=== PATIENT | male | born 1980 | race Two or more races ===

== ENCOUNTER 2017-08-24 09:13 | Inpatient (IN) | payer OTHER ==
[2017-08-24 10:00] VITALS: BMI 27.2
--- NOTE | 2017-08-24 10:22 | HP ---
CIWA Score - CIWA Score Nausea/Vomitin Muscle Tremors: 3 Anxiety: 3 Agitation: 3 Paroxysmal Sweats: 1-Minimal Palms Moist Orientation: 0-Oriented Tacttile Disturbances: 2-Mild Itch/Numbness/Burn Auditory Disturbances: 2-Mild Harshness/Frighten Visual Disturbances: 1-Very Mild Sensitivity Headache: 2-Mild CIWA-Ar Total Score: 20 Admission ROS BHS - HPI Chief Complaint: I NEED HELP TO STOP DRINKING ALCOHOL AND DRUGS Allergies/Adverse Reactions: Allergies Allergy/AdvReac Type Severity Reaction Status Date / Time No Known Allergies Allergy Verified 08/24/17 10:23 History of Present Illness: THIS 36 YEARS OLD MALE WITH ALCOHOL,COCAINE,MARIJUANA DEPENDENCE AND HEROIN ABUSED,SEEKING DETOX,WITHDRAWAL SYMPTOM,LAST DETOX 02/06 UNKNOWN FACILITY SCHIZOAFFECTIVE DISORDER NICOTINE DEPENDENCE Exam Limitations: No Limitations - Ebola screening Have you traveled outside of the country in the last 21 days: No (N) Have you had contact with anyone from an Ebola affected area: No Have you been sick,other than usual withdrawal symptoms: No Do you have a fever: No - Review of Systems Constitutional: Loss of Appetite, Malaise, Night Sweats, Changes in sleep, Weakness EENT: reports: Nose Congestion Respiratory: reports: No Symptoms reported Cardiac: reports: No Symptoms Reported GI: reports: Nausea, Vomiting, Abdominal cramping : reports: No Symptoms Reported Musculoskeletal: reports: Back Pain, Muscle Pain Integumentary: reports: Dryness Neuro: reports: Headache, Tremors Endocrine: reports: No Symptoms Reported Hematology: reports: No Symptoms Reported Psychiatric: reports: No Sypmtoms Reported, Judgement Intact, Mood/Affect Appropiate, Depressed Patient History - Patient Medical History Hx Anemia: No Hx Asthma: No Hx Chronic Obstructive Pulmonary Disease (COPD): No Hx Cancer: No Hx Cardiac Disorders: No Hx Congestive Heart Failure: No Hx Hypertension: No Hx Hypercholesterolemia: No Hx Pacemaker: No HX Cerebrovascular Accident: No Hx Seizures: No Hx Dementia: No Hx Diabetes: No Hx Gastrointestinal Disorders: No Hx Liver Disease: No Hx Genitourinary Disorders: No Hx Sexually Transmitted Disorders: No Hx Renal Disease (ESRD): No Hx Thyroid Disease: No Hx Human Immunodeficiency Virus (HIV): No (LAST TESTED IN 2017 NEGATIVE) Hx Hepatitis C: No Hx Depression: Yes Hx Suicide Attempt: No Hx Bipolar Disorder: No Hx Schizophrenia: Yes (SCHIZOAFFECTIVE DISORDER) Other Medical History: NO SUICIDAL,NO HOMICIDAL - Patient Surgical History Past Surgical History: No - PPD History Previous Implant?: Yes Documented Results: Negative w/o proof Implanted On Prior R Admission?: No PPD to be Administered?: Yes - Smoking Cessation Smoking history: Current every day smoker Have you smoked in the past 12 months: Yes Aproximately how many cigarettes per day: 20 Hx Chewing Tobacco Use: No Initiated information on smoking cessation: Yes 'Breaking Loose' booklet given: 08/24/17 - Substance & Tx. History Hx Alcohol Use: Yes Hx Substance Use: Yes Substance Use Type: Alcohol, Cocaine, Marijuana Hx Substance Use Treatment: Yes (02/07 IN [facility]) - Substances Abused Heroin Route: Inhalation Frequency: 1-3 times last 30 days Amount used: 1BUNDLE Age of first use: 34 Date of Last Use: 08/23/17 Cocaine Route: Smoking Frequency: Daily Amount used: $100 Age of first use: 16 Date of Last Use: 08/23/17 ETOH Route: Oral Frequency: Daily Amount used: 1PINT VODKA, 3-16OZ BEER Age of first use: 16 Date of Last Use: 08/22/17 THC Route: Smoking Frequency: 3-6 times per week Amount used: $ 50 Age of first use: 16 Date of Last Use: 08/23/17 Family Disease History - Family Disease History Family History: Denies Admission Physical Exam S - Vital Signs Vital Signs: Vital Signs - 24 hr 08/24/17 09:58 Temperature 98.0 F Pulse Rate 74 Respiratory 18 Rate Blood Pressure 118/81 - Physical General Appearance: Yes: Moderate Distress, Tremorous, Irritable, Sweating, Anxious HEENTM: Yes: Normal ENT Inspection, JUWAN, Pharynx Normal Respiratory: Yes: Lungs Clear, Normal Breath Sounds, No Respiratory Distress Neck: Yes: Within Normal Limits, Supple, Trachea in good position Breast: Yes: Within Normal Limits Cardiology: Yes: Within Normal Limits, Regular Rhythm, Regular Rate, S1, S2 Abdominal: Yes: Within Normal Limits, Normal Bowel Sounds, Non Tender, Flat, Soft Genitourinary: Yes: Within Normal Limits Back: Yes: Muscle Spasm Extremities: Yes: Within Normal Limits, Normal Range of Motion, Tremors Neurological: Yes: director marketing II-XII NML intact, Fully Oriented, Alert, Motor Strength 5/5 Integumentary: Yes: Dry Lymphatic: Yes: Within Normal Limits - Diagnostic (1) Alcohol dependence with uncomplicated withdrawal Current Visit: Yes Status: Acute (2) Cocaine dependence, uncomplicated Current Visit: Yes Status: Acute (3) Cannabis dependence Current Visit: Yes Status: Acute (4) Heroin abuse Current Visit: Yes Status: Acute (5) Schizoaffective disorder Current Visit: Yes Status: Chronic (6) Nicotine dependence Current Visit: Yes Status: Acute Qualifiers: Nicotine product type: cigarettes Substance use status: in withdrawal Qualified Code(s): F17.213 - Nicotine dependence, cigarettes, with withdrawal Cleared for Admission [facility] - Detox or Rehab [facility] Level of Care: Medically Managed Detox Regimen/Protocol: Librium [facility] Breath Alcohol Content Breath Alcohol Content: 0 Urine Drug Screen - Results Drug Screen Negative: No Urine Drug Screen Results: THC-Marijuana, DIEGO-Cocaine, BAR-Barbiturates
[2017-08-24] MEDS ORDERED: MAG HYDROX/AL HYDROX/SIMETH 30 ML UNIT-DOSE CUP PO PRN (10:41)
[2017-08-24] MEDS ORDERED: chlordiazePOXIDE HCL 25 MG CAPSULE PO PRN (10:41)
[2017-08-24] MEDS ORDERED: MAGNESIUM HYDROX 2400MG/30ML ORAL SUSPENSION 30 ML CUP PO PRN (10:41)
[2017-08-24] MEDS ORDERED: LOPERAMIDE HCL 2 MG CAPSULE PO PRN (10:41)
[2017-08-24] MEDS ORDERED: IBUPROFEN 400 MG TABLET (FP) PO PRN (10:41)
[2017-08-24] MEDS ORDERED: ACETAMINOPHEN 325 MG TABLET (FP) PO PRN (10:41)
[2017-08-24] MEDS ORDERED: P-EPHED 60MG/TRIPROLIDI 2.5MG TABLET PO PRN (10:41)
[2017-08-24] MEDS ORDERED: MENTHOL/PHENOL 1 EACH UD MM PRN (10:41)
[2017-08-24] MEDS ORDERED: NICOTINE POLACRILEX 2 MG GUM BUC PRN (10:41)
[2017-08-24] MEDS ORDERED: MAGNESIUM CITRATE 300 ML BOTTLE PO PRN (10:41)
[2017-08-24] MEDS ORDERED: guaiFENesin/D-METHORPHAN HB 10 ML UNIT-DOSE CUPS PO PRN (10:41)
[2017-08-24] MEDS ORDERED: hydrOXYzine PAMOATE 50 MG CAPSULE (FP) PO PRN (10:41)
[2017-08-24] MEDS ORDERED: chlordiazePOXIDE HCL 25 MG CAPSULE PO ONE (11:45)
[2017-08-24] MEDS: NICOTINE 21 MG/24 HOURS TOPICAL PATCH TD SCH (13:52)
[2017-08-24 15:15] LABS: URINE APPEARANCE CLEAR; URINE BILIRUBIN NEGATIVE (NEGATIVE); URINE BLOOD NEGATIVE (NEGATIVE); URINE COLOR YELLOW; URINE GLUCOSE (UA) NEGATIVE (NEGATIVE); URINE KETONE NEGATIVE (NEGATIVE); URINE LEUK ESTERASE NEGATIVE (NEGATIVE); URINE NITRITE NEGATIVE (NEGATIVE); URINE PROTEIN NEGATIVE (NEGATIVE)
[2017-08-24] MEDS: chlordiazePOXIDE HCL 25 MG CAPSULE PO SCH ×2 (17:31→22:45)
[2017-08-24] MEDS: THIAMINE HCL 100 MG TABLET (FP) PO SCH (22:45)
[2017-08-25] MEDS: chlordiazePOXIDE HCL 25 MG CAPSULE PO SCH ×4 (05:57→22:05)
[2017-08-25 10:13] LABS: HEMATOCRIT 41.9 % (35.4-49); HEMOGLOBIN 13.8 GM/dL (11.7-16.9); MCH 27.8 pg (25.7-33.7); MEAN CELL VOLUME 84.2 fl (80-96); MEAN PLT VOLUME 8.4 fl (7.5-11.1); PLATELET COUNT 247 K/MM3 (134-434); RBC 4.97 M/mm3 (4.00-5.60); RDW 13.2 % (11.9-15.9); WHITE BLOOD COUNT 7.1 K/mm3 (4.0-10.0)
[2017-08-25 10:27] LABS: ALBUMIN 3.3 g/dl (3.4-5.0); ANION GAP 6 (8-16); BLOOD UREA NITROGEN 10 mg/dL (7-18); CALCIUM 7.9 mg/dL (8.5-10.1); CHLORIDE 105 mmol/L (98-107); CO2 29 mmol/L (21-32); GLUCOSE,RANDOM 88 mg/dL (74-106); POTASSIUM 3.9 mmol/L (3.5-5.1); SODIUM 140 mmol/L (136-145)
[2017-08-25 10:31] LABS: ALK PHOS 82 U/L (45-117); BILIRUBIN,TOTAL 0.2 mg/dL (0.2-1.0); CREATININE 0.9 mg/dL (0.7-1.3); SGOT/AST 5 U/L (15-37); SGPT/ALT 10 U/L (12-78); TOT PROT 6.1 g/dl (6.4-8.2)
[2017-08-25] MEDS: NICOTINE 21 MG/24 HOURS TOPICAL PATCH TD SCH (10:43)
[2017-08-25] MEDS: PRENATAL VITAMINS W/ FOLIC ACID TABLET (FP) PO SCH (10:43)
--- NOTE | 2017-08-25 10:50 | EKG ---
Test Reason : Blood Pressure : / mmHG Vent. Rate : 063 BPM Atrial Rate : 063 BPM P-R Int : 168 ms QRS Dur : 090 ms QT Int : 388 ms P-R-T Axes : 063 028 039 degrees QTc Int : 397 ms NORMAL SINUS RHYTHM WITH SINUS ARRHYTHMIA NORMAL ECG NO PREVIOUS ECGS AVAILABLE Confirmed by MARY VALLE MD ([id number]) on 08/25/2017 10:50:06 AM Referred By: Confirmed By:MARY VALLE MD
[2017-08-25 11:01] LABS: SICKLE CELL SCREEN NEGATIVE (NEGATIVE)
[2017-08-25] MEDS ORDERED: PNEUMOC 13-VAL CONJ-DIP CRM/PF 0.5 ML DISP.SYRIN IM ONE (12:00)
--- NOTE | 2017-08-25 12:22 | PN ---
[facility] CIWA - CIWA Score Nausea/Vomitin-No Nausea/No Vomiting Muscle Tremors: 4-Moderate,w/Arms Extend Anxiety: 4-Mod. Anxious/Guarded Agitation: 4-Moderately Restless Paroxysmal Sweats: 1-Minimal Palms Moist Orientation: 0-Oriented Tacttile Disturbances: 3-Moderate Itch/Numb/Burn Auditory Disturbances: 0-None Visual Disturbances: 0-None Headache: 0-None Present CIWA-Ar Total Score: 16 BHS Progress Note (SOAP) Subjective: ANXIETY,SWEATS, FATIGUE. Objective: 08/25/17 12:20 Vital Signs Temperature 96.2 F L 08/25/17 09:51 Pulse Rate 66 08/25/17 09:51 Respiratory Rate 18 08/25/17 09:51 Blood Pressure 125/85 08/25/17 09:51 O2 Sat by Pulse Oximetry (%) Laboratory Last Values WBC 7.1 K/mm3 (4.0-10.0) 08/25/17 07:00 RBC 4.97 M/mm3 (4.00-5.60) 08/25/17 07:00 Hgb 13.8 GM/dL (11.7-16.9) 08/25/17 07:00 Hct 41.9 % (35.4-49) 08/25/17 07:00 MCV 84.2 fl (80-96) 08/25/17 07:00 MCH 27.8 pg (25.7-33.7) 08/25/17 07:00 MCHC 33.0 g/dl (32.0-35.9) 08/25/17 07:00 RDW 13.2 % (11.9-15.9) 08/25/17 07:00 Plt Count 247 K/MM3 (134-434) 08/25/17 07:00 MPV 8.4 fl (7.5-11.1) 08/25/17 07:00 Sickle Cell Screen Negative (NEGATIVE) 08/25/17 07:00 Sodium 140 mmol/L (136-145) 08/25/17 07:00 Potassium 3.9 mmol/L (3.5-5.1) 08/25/17 07:00 Chloride 105 mmol/L (98-107) 08/25/17 07:00 Carbon Dioxide 29 mmol/L (21-32) 08/25/17 07:00 Anion Gap 6 (8-16) L 08/25/17 07:00 BUN 10 mg/dL (7-18) 08/25/17 07:00 Creatinine 0.9 mg/dL (0.7-1.3) 08/25/17 07:00 Creat Clearance w eGFR > 60 (>60) 08/25/17 07:00 Random Glucose 88 mg/dL (74-106) 08/25/17 07:00 Calcium 7.9 mg/dL (8.5-10.1) L 08/25/17 07:00 Total Bilirubin 0.2 mg/dL (0.2-1.0) 08/25/17 07:00 AST 5 U/L (15-37) L 08/25/17 07:00 ALT 10 U/L (12-78) L 08/25/17 07:00 Alkaline Phosphatase 82 U/L (45-117) 08/25/17 07:00 Total Protein 6.1 g/dl (6.4-8.2) L 08/25/17 07:00 Albumin 3.3 g/dl (3.4-5.0) L 08/25/17 07:00 Urine Color Yellow 08/24/17 15:01 Urine Appearance Clear 08/24/17 15:01 Urine pH 6.0 (5.0-8.0) 08/24/17 15:01 Ur Specific [place] 1.028 (1.001-1.035) 08/24/17 15:01 Urine Protein Negative (NEGATIVE) 08/24/17 15:01 Urine Glucose (UA) Negative (NEGATIVE) 08/24/17 15:01 Urine Ketones Negative (NEGATIVE) 08/24/17 15:01 Urine Blood Negative (NEGATIVE) 08/24/17 15:01 Urine Nitrite Negative (NEGATIVE) 08/24/17 15:01 Urine Bilirubin Negative (NEGATIVE) 08/24/17 15:01 Urine Urobilinogen 2.0 mg/dL (0.2-1.0) 08/24/17 15:01 Ur Leukocyte Esterase Negative (NEGATIVE) 08/24/17 15:01 RPR Titer Nonreactive (NONREACTIVE) 08/25/17 07:00 Assessment: 08/25/17 12:22 WITHDRAWAL SX Plan: CONTINUE DETOX
--- NOTE | 2017-08-25 13:17 | CONSULT ---
[facility] Psychiatric Consult - Data Date of interview: 08/25/17 Admission source: [facility] Identifying data: First admission to [facility] for this 36 y/o male seeking detox treatment on for alcohol,heroin,cocaine and cannabis dependence.Patient is single,a father of one,homeless,unemployed and supported on SSI benefits. Substance Abuse History: Confirmed by patient in this session.Smoking history: Current every day smoker. Have you smoked in the past 12 months: Yes. Aproximately how many cigarettes per day: 20. Hx Chewing Tobacco Use: No. Initiated information on smoking cessation: Yes. 'Breaking Loose' booklet given : 08/24/17. - Substance & Tx. History. Hx Alcohol Use: Yes. Hx Substance Use : Yes. Substance Use Type: Alcohol, Cocaine, Marijuana. Hx Substance Use Treatment: Yes (02/07 IN [facility]) Medical History: Patient endorses good general health. Psychiatric History: Diagnosed with Schizoaffective Disorder.Prescribed zyprexa 20 mg/hs.Patient admits to a history of four admissions [facility].No psychiatric OPD care.Mr Urban states that he uses emergency room settings for medications refillls.Denies history of suicide attempts. Physical/Sexual Abuse/Trauma History: Patient denies. Additional Comment: Urine Drug Screen Results: THC-Marijuana, DIEGO-Cocaine, BAR- Barbiturates.Noted. Mental Status Exam - Mental Status Exam Alert and Oriented to: Time, Place, Person Cognitive Function: Good Patient Appearance: Unkempt, Disheveled Mood: Nervous, Withdrawn, Anxious Affect: Mood Congruent Patient Behavior: Fatigued, Appropriate, Cooperative Speech Pattern: Clear, Appropriate Voice Loudness: Normal Thought Process: Intact, Goal Oriented Thought Disorder: Not Present Hallucinations: Denies Suicidal Ideation: Denies Homicidal Ideation: Denies Insight/Judgement: Poor Sleep: Well Appetite: Good Muscle strength/Tone: Normal Gait/Station: Normal Psychiatric Findings - Problem List ([place] 1, 2,3) (1) Alcohol dependence with uncomplicated withdrawal Current Visit: Yes Status: Acute (2) Cannabis dependence Current Visit: Yes Status: Acute (3) Cocaine dependence, uncomplicated Current Visit: Yes Status: Acute (4) Nicotine dependence Current Visit: Yes Status: Acute Qualifiers: Nicotine product type: cigarettes Substance use status: in withdrawal Qualified Code(s): F17.213 - Nicotine dependence, cigarettes, with withdrawal (5) Schizoaffective disorder Current Visit: Yes Status: Chronic - Initial Treatment Plan Initial Treatment Plan: Psychoeducation.Sleep hygiene.Detoxification in progress.Zyprexa 10 mg po hs.Side effects/benefits discussed with patient.Informed,in particular,of the risk of metabolic syndrome.Mr Urban agrees to follow this careplan.Observation.
[2017-08-25] MEDS: OLANZapine 10 MG TABLET PO SCH (22:05)
[2017-08-25] MEDS: THIAMINE HCL 100 MG TABLET (FP) PO SCH (22:05)
[2017-08-26] MEDS: chlordiazePOXIDE HCL 25 MG CAPSULE PO SCH ×2 (06:57→10:36)
[2017-08-26] MEDS: PRENATAL VITAMINS W/ FOLIC ACID TABLET (FP) PO SCH (10:36)
[2017-08-26] MEDS: NICOTINE 21 MG/24 HOURS TOPICAL PATCH TD SCH (10:37)
--- NOTE | 2017-08-26 13:07 | PN ---
[facility] CIWA - CIWA Score Nausea/Vomitin-No Nausea/No Vomiting Muscle Tremors: 4-Moderate,w/Arms Extend Anxiety: 4-Mod. Anxious/Guarded Agitation: 4-Moderately Restless Paroxysmal Sweats: 1-Minimal Palms Moist Orientation: 0-Oriented Tacttile Disturbances: 3-Moderate Itch/Numb/Burn Auditory Disturbances: 0-None Visual Disturbances: 0-None Headache: 0-None Present CIWA-Ar Total Score: 16 BHS Progress Note (SOAP) Subjective: ANXIETY,SWEATS,FATIGUE. Objective: 08/26/17 13:06 Vital Signs Temperature 97.8 F 08/26/17 13:05 Pulse Rate 83 08/26/17 13:05 Respiratory Rate 18 08/26/17 13:05 Blood Pressure 107/67 08/26/17 13:05 O2 Sat by Pulse Oximetry (%) Laboratory Last Values WBC 7.1 K/mm3 (4.0-10.0) 08/25/17 07:00 RBC 4.97 M/mm3 (4.00-5.60) 08/25/17 07:00 Hgb 13.8 GM/dL (11.7-16.9) 08/25/17 07:00 Hct 41.9 % (35.4-49) 08/25/17 07:00 MCV 84.2 fl (80-96) 08/25/17 07:00 MCH 27.8 pg (25.7-33.7) 08/25/17 07:00 MCHC 33.0 g/dl (32.0-35.9) 08/25/17 07:00 RDW 13.2 % (11.9-15.9) 08/25/17 07:00 Plt Count 247 K/MM3 (134-434) 08/25/17 07:00 MPV 8.4 fl (7.5-11.1) 08/25/17 07:00 Sickle Cell Screen Negative (NEGATIVE) 08/25/17 07:00 Sodium 140 mmol/L (136-145) 08/25/17 07:00 Potassium 3.9 mmol/L (3.5-5.1) 08/25/17 07:00 Chloride 105 mmol/L (98-107) 08/25/17 07:00 Carbon Dioxide 29 mmol/L (21-32) 08/25/17 07:00 Anion Gap 6 (8-16) L 08/25/17 07:00 BUN 10 mg/dL (7-18) 08/25/17 07:00 Creatinine 0.9 mg/dL (0.7-1.3) 08/25/17 07:00 Creat Clearance w eGFR > 60 (>60) 08/25/17 07:00 Random Glucose 88 mg/dL (74-106) 08/25/17 07:00 Calcium 7.9 mg/dL (8.5-10.1) L 08/25/17 07:00 Total Bilirubin 0.2 mg/dL (0.2-1.0) 08/25/17 07:00 AST 5 U/L (15-37) L 08/25/17 07:00 ALT 10 U/L (12-78) L 08/25/17 07:00 Alkaline Phosphatase 82 U/L (45-117) 08/25/17 07:00 Total Protein 6.1 g/dl (6.4-8.2) L 08/25/17 07:00 Albumin 3.3 g/dl (3.4-5.0) L 08/25/17 07:00 Urine Color Yellow 08/24/17 15:01 Urine Appearance Clear 08/24/17 15:01 Urine pH 6.0 (5.0-8.0) 08/24/17 15:01 Ur Specific [place] 1.028 (1.001-1.035) 08/24/17 15:01 Urine Protein Negative (NEGATIVE) 08/24/17 15:01 Urine Glucose (UA) Negative (NEGATIVE) 08/24/17 15:01 Urine Ketones Negative (NEGATIVE) 08/24/17 15:01 Urine Blood Negative (NEGATIVE) 08/24/17 15:01 Urine Nitrite Negative (NEGATIVE) 08/24/17 15:01 Urine Bilirubin Negative (NEGATIVE) 08/24/17 15:01 Urine Urobilinogen 2.0 mg/dL (0.2-1.0) 08/24/17 15:01 Ur Leukocyte Esterase Negative (NEGATIVE) 08/24/17 15:01 RPR Titer Nonreactive (NONREACTIVE) 08/25/17 07:00 Assessment: 08/26/17 13:06 WITHDRAWAL SX Plan: CONTINUE DETOX
[2017-08-26] MEDS: chlordiazePOXIDE 5 MG CAPSULE PO SCH ×2 (18:02→22:37)
[2017-08-26] MEDS: THIAMINE HCL 100 MG TABLET (FP) PO SCH (22:37)
[2017-08-26] MEDS: OLANZapine 10 MG TABLET PO SCH (22:37)
[2017-08-27] MEDS: chlordiazePOXIDE 5 MG CAPSULE PO SCH ×2 (05:29→10:36)
[2017-08-27] MEDS: NICOTINE 21 MG/24 HOURS TOPICAL PATCH TD SCH (10:36)
[2017-08-27] MEDS: PRENATAL VITAMINS W/ FOLIC ACID TABLET (FP) PO SCH (10:36)
--- NOTE | 2017-08-27 13:34 | PN ---
BHS Progress Note (SOAP) Subjective: ANXIETY, SWEATS,IN BED SLEEPING MOST TIME, FATIGUE. OOB FOR UNIT ROUTINES. Objective: 08/27/17 13:33 Vital Signs 08/27/17 08/27/17 08/27/17 06:20 09:05 13:08 Temperature 97.1 F L 96.7 F L 97.6 F Pulse Rate 68 74 120 H Respiratory 18 18 20 Rate Blood Pressure 110/65 116/79 124/83 Assessment: 08/27/17 13:34 WITHDRAWAL SX Plan: CONTINUE DETOX
[2017-08-27] MEDS: chlordiazePOXIDE HCL 10 MG CAPSULE PO SCH ×2 (18:18→22:40)
[2017-08-27] MEDS: THIAMINE HCL 100 MG TABLET (FP) PO SCH (22:40)
[2017-08-27] MEDS: OLANZapine 10 MG TABLET PO SCH (22:41)
[2017-08-28 06:08] VITALS: BP 110/68; PULSE 79; TEMP 97
[2017-08-28] MEDS: chlordiazePOXIDE HCL 10 MG CAPSULE PO SCH (06:33)
--- NOTE | 2017-08-28 13:17 | PN ---
[facility] Progress Note (SOAP) Subjective: DETOX COMPLETED.ALERT O X 3. NAD. PT REFERRED TO REHAB AND BED AVAILABLE TODAY BUT PT DECLINED TO GO TO REHAB. Objective: 08/28/17 13:16 Vital Signs Temperature 97 F L 08/28/17 06:07 Pulse Rate 79 08/28/17 06:07 Respiratory Rate 20 08/28/17 06:07 Blood Pressure 110/68 08/28/17 06:07 O2 Sat by Pulse Oximetry (%) Laboratory Last Values WBC 7.1 K/mm3 (4.0-10.0) 08/25/17 07:00 RBC 4.97 M/mm3 (4.00-5.60) 08/25/17 07:00 Hgb 13.8 GM/dL (11.7-16.9) 08/25/17 07:00 Hct 41.9 % (35.4-49) 08/25/17 07:00 MCV 84.2 fl (80-96) 08/25/17 07:00 MCH 27.8 pg (25.7-33.7) 08/25/17 07:00 MCHC 33.0 g/dl (32.0-35.9) 08/25/17 07:00 RDW 13.2 % (11.9-15.9) 08/25/17 07:00 Plt Count 247 K/MM3 (134-434) 08/25/17 07:00 MPV 8.4 fl (7.5-11.1) 08/25/17 07:00 Sickle Cell Screen Negative (NEGATIVE) 08/25/17 07:00 Sodium 140 mmol/L (136-145) 08/25/17 07:00 Potassium 3.9 mmol/L (3.5-5.1) 08/25/17 07:00 Chloride 105 mmol/L (98-107) 08/25/17 07:00 Carbon Dioxide 29 mmol/L (21-32) 08/25/17 07:00 Anion Gap 6 (8-16) L 08/25/17 07:00 BUN 10 mg/dL (7-18) 08/25/17 07:00 Creatinine 0.9 mg/dL (0.7-1.3) 08/25/17 07:00 Creat Clearance w eGFR > 60 (>60) 08/25/17 07:00 Random Glucose 88 mg/dL (74-106) 08/25/17 07:00 Calcium 7.9 mg/dL (8.5-10.1) L 08/25/17 07:00 Total Bilirubin 0.2 mg/dL (0.2-1.0) 08/25/17 07:00 AST 5 U/L (15-37) L 08/25/17 07:00 ALT 10 U/L (12-78) L 08/25/17 07:00 Alkaline Phosphatase 82 U/L (45-117) 08/25/17 07:00 Total Protein 6.1 g/dl (6.4-8.2) L 08/25/17 07:00 Albumin 3.3 g/dl (3.4-5.0) L 08/25/17 07:00 Urine Color Yellow 08/24/17 15:01 Urine Appearance Clear 08/24/17 15:01 Urine pH 6.0 (5.0-8.0) 08/24/17 15:01 Ur Specific [place] 1.028 (1.001-1.035) 08/24/17 15:01 Urine Protein Negative (NEGATIVE) 08/24/17 15:01 Urine Glucose (UA) Negative (NEGATIVE) 08/24/17 15:01 Urine Ketones Negative (NEGATIVE) 08/24/17 15:01 Urine Blood Negative (NEGATIVE) 08/24/17 15:01 Urine Nitrite Negative (NEGATIVE) 08/24/17 15:01 Urine Bilirubin Negative (NEGATIVE) 08/24/17 15:01 Urine Urobilinogen 2.0 mg/dL (0.2-1.0) 08/24/17 15:01 Ur Leukocyte Esterase Negative (NEGATIVE) 08/24/17 15:01 RPR Titer Nonreactive (NONREACTIVE) 08/25/17 07:00 Assessment: 08/28/17 13:16 WITHDRAWAL SX Plan: D/C PT TODAY.
--- NOTE | 2017-08-28 13:20 | DS ---
[facility] Detox Discharge Summary Admission Date: 08/24/17 Discharge Date: 08/28/17 - History Present History: Alcohol Dependence, Cannabis Dependence, Cocaine Dependence Additional Comments: DETOX COMPLETED. NAD.ALERT O X 3. PT DECLINED TO GO TO REHAB TODAY BED WAS AVAILABLE. INSTRUCTED TO FOLLOW UP AT [facility] [place] FOR MEDICAL CARE NEEDED. Pertinent Past History: SEE DX BELOW - Physical Exam Results Vital Signs: Vital Signs Temperature 97 F L 08/28/17 06:07 Pulse Rate 79 08/28/17 06:07 Respiratory Rate 20 08/28/17 06:07 Blood Pressure 110/68 08/28/17 06:07 O2 Sat by Pulse Oximetry (%) Pertinent Admission Physical Exam Findings: WITHDRAWAL SX Laboratory Last Values WBC 7.1 K/mm3 (4.0-10.0) 08/25/17 07:00 RBC 4.97 M/mm3 (4.00-5.60) 08/25/17 07:00 Hgb 13.8 GM/dL (11.7-16.9) 08/25/17 07:00 Hct 41.9 % (35.4-49) 08/25/17 07:00 MCV 84.2 fl (80-96) 08/25/17 07:00 MCH 27.8 pg (25.7-33.7) 08/25/17 07:00 MCHC 33.0 g/dl (32.0-35.9) 08/25/17 07:00 RDW 13.2 % (11.9-15.9) 08/25/17 07:00 Plt Count 247 K/MM3 (134-434) 08/25/17 07:00 MPV 8.4 fl (7.5-11.1) 08/25/17 07:00 Sickle Cell Screen Negative (NEGATIVE) 08/25/17 07:00 Sodium 140 mmol/L (136-145) 08/25/17 07:00 Potassium 3.9 mmol/L (3.5-5.1) 08/25/17 07:00 Chloride 105 mmol/L (98-107) 08/25/17 07:00 Carbon Dioxide 29 mmol/L (21-32) 08/25/17 07:00 Anion Gap 6 (8-16) L 08/25/17 07:00 BUN 10 mg/dL (7-18) 08/25/17 07:00 Creatinine 0.9 mg/dL (0.7-1.3) 08/25/17 07:00 Creat Clearance w eGFR > 60 (>60) 08/25/17 07:00 Random Glucose 88 mg/dL (74-106) 08/25/17 07:00 Calcium 7.9 mg/dL (8.5-10.1) L 08/25/17 07:00 Total Bilirubin 0.2 mg/dL (0.2-1.0) 08/25/17 07:00 AST 5 U/L (15-37) L 08/25/17 07:00 ALT 10 U/L (12-78) L 08/25/17 07:00 Alkaline Phosphatase 82 U/L (45-117) 08/25/17 07:00 Total Protein 6.1 g/dl (6.4-8.2) L 08/25/17 07:00 Albumin 3.3 g/dl (3.4-5.0) L 08/25/17 07:00 Urine Color Yellow 08/24/17 15:01 Urine Appearance Clear 08/24/17 15:01 Urine pH 6.0 (5.0-8.0) 08/24/17 15:01 Ur Specific [place] 1.028 (1.001-1.035) 08/24/17 15:01 Urine Protein Negative (NEGATIVE) 08/24/17 15:01 Urine Glucose (UA) Negative (NEGATIVE) 08/24/17 15:01 Urine Ketones Negative (NEGATIVE) 08/24/17 15:01 Urine Blood Negative (NEGATIVE) 08/24/17 15:01 Urine Nitrite Negative (NEGATIVE) 08/24/17 15:01 Urine Bilirubin Negative (NEGATIVE) 08/24/17 15:01 Urine Urobilinogen 2.0 mg/dL (0.2-1.0) 08/24/17 15:01 Ur Leukocyte Esterase Negative (NEGATIVE) 08/24/17 15:01 RPR Titer Nonreactive (NONREACTIVE) 08/25/17 07:00 - Treatment Hospital Course: Detox Protocol Followed, Detoxed Safely, Responded well, Discharged Condition Good Patient has Accepted a Rehab Referral to: REFUSE - Medication Discharge Medications: Ambulatory Orders Olanzapine [Zyprexa] 10 mg PO HS #30 tablet 08/26/17 - Diagnosis (1) Alcohol dependence with uncomplicated withdrawal Status: Acute (2) Cocaine dependence, uncomplicated Status: Acute (3) Nicotine dependence Status: Acute Qualifiers: Nicotine product type: cigarettes Substance use status: in withdrawal Qualified Code(s): F17.213 - Nicotine dependence, cigarettes, with withdrawal (4) Cannabis dependence Status: Acute - AMA Did Patient Leave Against Medical Advice: No
== END 2017-08-28 09:35 | disposition home or self-care (01) | DRG 773 ==
LOC: YASAS 09:13 → Y3N 12:34
PROVIDERS: ADMIT Internal Medicine; ATTEND Internal Medicine
PROC: HZ2ZZZZ Detoxification Services for Substance Abuse Treatment (ICD-10-PCS; principal; 2017-08-24)
DX: F10.230 Alcohol dependence with withdrawal, uncomplicated (principal); F14.20 Cocaine dependence, uncomplicated; F12.20 Cannabis dependence, uncomplicated; F11.10 Opioid abuse, uncomplicated; F17.213 Nicotine dependence, cigarettes, with withdrawal; F25.9 Schizoaffective disorder, unspecified
CPT/HCPCS: 36415; 80053; 81003; 85027; 85660; 86593; 93005; 93010

== ENCOUNTER 2022-07-15 14:15 | Inpatient (IN) | payer OTHER ==
[2022-07-15 15:09] VITALS: BMI 25.8
[2022-07-15] MEDS ORDERED: guaiFENesin 200 MG/10 ML 10 ML UNIT-DOSE CUPS PO PRN (16:33)
[2022-07-15] MEDS ORDERED: BENZOCAINE/MENTHOL (CHLORASEPTIC ) LOZENGE MM PRN (16:33)
[2022-07-15] MEDS ORDERED: ACETAMINOPHEN 325 MG TABLET (FP) PO PRN (16:33)
[2022-07-15] MEDS ORDERED: MAGNESIUM HYDROX 2400MG/30ML ORAL SUSPENSION 30 ML CUP PO PRN (16:33)
[2022-07-15] MEDS ORDERED: LOPERAMIDE HCL 2 MG CAPSULE PO PRN (16:33)
[2022-07-15] MEDS ORDERED: NICOTINE 10 MG CARTRIDGE (INHALER) IH PRN (16:33)
[2022-07-15] MEDS ORDERED: IBUPROFEN 400 MG TABLET (FP) PO PRN (16:33)
[2022-07-15] MEDS ORDERED: P-EPHED 60MG/TRIPROLIDI 2.5MG TABLET PO PRN (16:33)
[2022-07-15] MEDS ORDERED: MAG HYDROX/AL HYDROX/SIMETH 30 ML UNIT-DOSE CUP PO PRN (16:33)
[2022-07-15] MEDS ORDERED: POLYETHYLENE GLYCOL (HEALTHYLAX) 3350 17 GM PACKET PO PRN (16:33)
[2022-07-15] MEDS ORDERED: TUBERCULIN PPD 5 TU/0.1ML VIAL ID ONE (19:30)
[2022-07-15] MEDS: PRENATAL VITAMINS W/ FOLIC ACID TABLET (FP) PO SCH (20:01)
[2022-07-15] MEDS: NICOTINE 21 MG/24 HOURS TOPICAL PATCH TD SCH (20:01)
[2022-07-15] MEDS: MELATONIN 5 MG TABLETS PO SCH (22:29)
[2022-07-15] MEDS: THIAMINE HCL 100 MG TABLET (FP) PO SCH (22:29)
[2022-07-16] MEDS: NICOTINE 21 MG/24 HOURS TOPICAL PATCH TD SCH (10:54)
[2022-07-16] MEDS: PRENATAL VITAMINS W/ FOLIC ACID TABLET (FP) PO SCH (10:54)
[2022-07-16 11:12] LABS: HEMATOCRIT 44.6 % (35.4-49); HEMOGLOBIN 14.7 GM/dL (11.7-16.9); MCH 27.9 pg (25.7-33.7); MCHC 32.9 g/dl (32.0-35.9); MEAN CELL VOLUME 84.8 fl (80-96); MEAN PLT VOLUME 8.3 fl (7.5-11.1); PLATELET COUNT 310 10^3/uL (134-434); RBC 5.26 M/mm3 (4.00-5.60); WHITE BLOOD COUNT 4.4 K/mm3 (4.0-10.0)
[2022-07-16 11:18] LABS: PH,URINE 6.5 (5.0-8.0); URINE APPEARANCE CLOUDY; URINE BILIRUBIN NEGATIVE (NEGATIVE); URINE COLOR YELLOW; URINE GLUCOSE (UA) NEGATIVE (NEGATIVE); URINE KETONE TRACE (NEGATIVE); URINE LEUK ESTERASE NEGATIVE (NEGATIVE); URINE NITRITE NEGATIVE (NEGATIVE); URINE PROTEIN NEGATIVE (NEGATIVE)
[2022-07-16 12:36] LABS: ALBUMIN 3.4 g/dl (3.4-5.0); CALCIUM 8.5 mg/dL (8.5-10.1)
[2022-07-16 12:37] LABS: BLOOD UREA NITROGEN 10.8 mg/dL (7-18)
[2022-07-16 12:39] LABS: CREATININE 1.1 mg/dL (0.55-1.3)
[2022-07-16 12:41] LABS: BILIRUBIN,TOTAL 0.7 mg/dL (0.2-1); TOT PROT 6.2 g/dl (6.4-8.2)
[2022-07-16 12:49] LABS: SYPHILIS W/ RPR CONF NON-REACTIVE (NONREACTIVE)
[2022-07-16] MEDS: hydrOXYzine PAMOATE 25 MG CAPSULE (FP) PO PRN (21:41)
[2022-07-16] MEDS: DIVALPROEX SODIUM 500 MG TABLET E.C. PO SCH (21:41)
[2022-07-16] MEDS: THIAMINE HCL 100 MG TABLET (FP) PO SCH (21:41)
[2022-07-16] MEDS: MELATONIN 5 MG TABLETS PO SCH (21:41)
[2022-07-16] MEDS ORDERED: OLANZapine 7.5 MG TABLET PO SCH (22:00)
[2022-07-17] MEDS: PRENATAL VITAMINS W/ FOLIC ACID TABLET (FP) PO SCH (10:39)
[2022-07-17] MEDS: NICOTINE 21 MG/24 HOURS TOPICAL PATCH TD SCH (10:39)
[2022-07-17] MEDS ORDERED: PERMETHRIN (NIX CREAM SCALP RINSE) 59 ML 1% BOTTLE TP ONE (15:00)
[2022-07-17] MEDS: CALAMINE 8% TOPICAL LOTION 177 ML BOTTLE TP PRN ×2 (16:04→21:50)
[2022-07-17] MEDS ORDERED: OLANZapine 5 MG TABLET PO SCH (20:39)
[2022-07-17] MEDS: THIAMINE HCL 100 MG TABLET (FP) PO SCH (21:49)
[2022-07-17] MEDS: DIVALPROEX SODIUM 500 MG TABLET E.C. PO SCH (21:49)
[2022-07-17] MEDS: MELATONIN 5 MG TABLETS PO SCH (21:49)
[2022-07-17] MEDS: hydrOXYzine PAMOATE 25 MG CAPSULE (FP) PO PRN (21:49)
[2022-07-18] MEDS: NICOTINE 21 MG/24 HOURS TOPICAL PATCH TD SCH (09:29)
[2022-07-18] MEDS: PRENATAL VITAMINS W/ FOLIC ACID TABLET (FP) PO SCH (09:29)
[2022-07-18] MEDS: OLANZapine 5 MG TABLET PO SCH (21:40)
[2022-07-18] MEDS: DIVALPROEX SODIUM 500 MG TABLET E.C. PO SCH (21:40)
[2022-07-18] MEDS: MELATONIN 5 MG TABLETS PO SCH (21:40)
[2022-07-18] MEDS: CALAMINE 8% TOPICAL LOTION 177 ML BOTTLE TP PRN (21:41)
[2022-07-18] MEDS: THIAMINE HCL 100 MG TABLET (FP) PO SCH (21:41)
[2022-07-19 07:21] VITALS: RESP 18; TEMP 97.5
[2022-07-19] MEDS: NICOTINE 21 MG/24 HOURS TOPICAL PATCH TD SCH (10:14)
[2022-07-19] MEDS: DIVALPROEX SODIUM 500 MG TABLET E.C. PO SCH ×2 (10:14→21:28)
[2022-07-19] MEDS: PRENATAL VITAMINS W/ FOLIC ACID TABLET (FP) PO SCH (10:14)
[2022-07-19] MEDS: OLANZapine 5 MG TABLET PO SCH (21:28)
[2022-07-19] MEDS: MELATONIN 5 MG TABLETS PO SCH (21:28)
[2022-07-19] MEDS: THIAMINE HCL 100 MG TABLET (FP) PO SCH (21:28)
[2022-07-20 07:34] VITALS: BP 110/61; PULSE 85
[2022-07-20] MEDS: PRENATAL VITAMINS W/ FOLIC ACID TABLET (FP) PO SCH (10:05)
[2022-07-20] MEDS: DIVALPROEX SODIUM 500 MG TABLET E.C. PO SCH (10:05)
[2022-07-20] MEDS: NICOTINE 21 MG/24 HOURS TOPICAL PATCH TD SCH (10:05)
== END 2022-07-20 11:10 | disposition left against medical advice (07) | DRG 770 ==
LOC: YASAS 14:15 → Y5N 18:33
PROVIDERS: ADMIT Allergy & Immunology; ATTEND Psychiatry & Neurology Pain Medicine
PROC: HZ42ZZZ Group Counseling for Substance Abuse Treatment, Cognitive-Behavioral (ICD-10-PCS; principal; 2022-07-15)
DX: F15.20 Other stimulant dependence, uncomplicated (principal); F14.10 Cocaine abuse, uncomplicated; F10.10 Alcohol abuse, uncomplicated; F12.20 Cannabis dependence, uncomplicated; F17.210 Nicotine dependence, cigarettes, uncomplicated; F25.9 Schizoaffective disorder, unspecified; F41.8 Other specified anxiety disorders; R76.11 Nonspecific reaction to tuberculin skin test without active tuberculosis; R73.9 Hyperglycemia, unspecified; Z59.00 Homelessness unspecified; Z56.0 Unemployment, unspecified
CPT/HCPCS: 36415; 80053; 80164; 81003; 82962; 85027; 86780; 86803; 87811; 93005; 93010; C9803-CS; U0003; U0005

== ENCOUNTER 2023-04-26 14:30 | Inpatient (IN) | payer OTHER ==
[2023-04-26 15:14] VITALS: BMI 25.5
[2023-04-26] MEDS ORDERED: hydrOXYzine PAMOATE 25 MG CAPSULE (FP) PO PRN (17:22)
[2023-04-26] MEDS ORDERED: DICYCLOMINE HCL 10 MG CAPSULE PO PRN (17:22)
[2023-04-26] MEDS ORDERED: BENZONATATE 200 MG CAPSULE PO PRN (17:22)
[2023-04-26] MEDS ORDERED: LOPERAMIDE HCL 2 MG CAPSULE PO PRN (17:22)
[2023-04-26] MEDS ORDERED: IBUPROFEN 400 MG TABLET (FP) PO PRN (17:22)
[2023-04-26] MEDS ORDERED: NALOXONE HCL (KLOXXADO) 8 MG SPRAY NS PRN (17:22)
[2023-04-26] MEDS ORDERED: IBUPROFEN 600 MG TABLET (FP) PO PRN (17:22)
[2023-04-26] MEDS ORDERED: chlordiazePOXIDE HCL 25 MG CAPSULE PO PRN (17:22)
[2023-04-26] MEDS ORDERED: NALOXONE HCL 0.4 MG/ML VIAL IM PRN (17:22)
[2023-04-26] MEDS ORDERED: METHOCARBAMOL 500 MG TABLET PO PRN (17:22)
[2023-04-26] MEDS ORDERED: POLYETHYLENE GLYCOL (HEALTHYLAX) 3350 17 GM PACKET PO PRN (17:22)
[2023-04-26] MEDS ORDERED: BISMUTH SUBSALICYLATE 524 MG/30 ML PO PRN (17:22)
[2023-04-26] MEDS ORDERED: MAG HYDROX/AL HYDROX/SIMETH 30 ML UNIT-DOSE CUP PO PRN (17:22)
[2023-04-26] MEDS ORDERED: MAGNESIUM HYDROX 2400MG/30ML ORAL SUSPENSION 30 ML CUP PO PRN (17:22)
[2023-04-26] MEDS ORDERED: ONDANSETRON *ODT* 4 MG TABLET SL PRN (17:22)
[2023-04-26] MEDS ORDERED: guaiFENesin 600 MG TABLET.ER (FP) PO PRN (17:22)
[2023-04-26] MEDS ORDERED: BENZOCAINE/MENTHOL (CHLORASEPTIC ) LOZENGE MM PRN (17:22)
[2023-04-26] MEDS ORDERED: ACETAMINOPHEN 325 MG TABLET (FP) PO PRN (17:22)
[2023-04-26] MEDS: MELATONIN 5 MG TABLETS PO SCH (22:19)
[2023-04-26] MEDS: THIAMINE HCL 100 MG TABLET (FP) PO SCH (22:20)
[2023-04-26] MEDS: chlordiazePOXIDE HCL 25 MG CAPSULE PO SCH (22:21)
[2023-04-27] MEDS: chlordiazePOXIDE HCL 25 MG CAPSULE PO SCH ×5 (05:45→23:05)
[2023-04-27 09:48] LABS: HEMATOCRIT 44.2 % (35.4-49); HEMOGLOBIN 14.9 GM/dL (11.7-16.9); MCH 27.9 pg (25.7-33.7); MCHC 33.6 g/dl (32.0-35.9); MEAN PLT VOLUME 8.3 fl (7.5-11.1); PLATELET COUNT 286 10^3/uL (134-434); RBC 5.33 M/mm3 (4.00-5.60); RDW 13.9 % (11.9-15.9)
[2023-04-27 10:05] LABS: CHLORIDE 104 mmol/L (98-107); POTASSIUM 4.5 mmol/L (3.5-5.1); SODIUM 139 mmol/L (136-145)
[2023-04-27 10:07] LABS: CALCIUM 9.8 mg/dL (8.5-10.1)
[2023-04-27 10:08] LABS: ANION GAP 6 mmol/L (4-13); BLOOD UREA NITROGEN 16.2 mg/dL (7-18); CO2 29 mmol/L (21-32); GLUCOSE,RANDOM 93 mg/dL (74-106)
[2023-04-27 10:11] LABS: CREATININE 1.2 mg/dL (0.55-1.3); SGOT/AST 13 U/L (15-37); SGPT/ALT 17 U/L (13-61)
[2023-04-27 10:13] LABS: BILIRUBIN,TOTAL 0.9 mg/dL (0.2-1); TOT PROT 7.2 g/dl (6.4-8.2)
[2023-04-27 10:14] LABS: ALK PHOS 78 U/L (45-117)
[2023-04-27] MEDS: PRENATAL VITAMINS W/ FOLIC ACID TABLET (FP) PO SCH (10:43)
[2023-04-27] MEDS: MELATONIN 5 MG TABLETS PO SCH (23:04)
[2023-04-27] MEDS: DIVALPROEX SODIUM 500 MG TABLET E.C. PO SCH (23:04)
[2023-04-27] MEDS: THIAMINE HCL 100 MG TABLET (FP) PO SCH (23:05)
[2023-04-27] MEDS: OLANZapine 10 MG TABLET PO SCH (23:05)
[2023-04-28] MEDS: chlordiazePOXIDE HCL 25 MG CAPSULE PO SCH ×4 (05:50→22:55)
[2023-04-28] MEDS: PRENATAL VITAMINS W/ FOLIC ACID TABLET (FP) PO SCH (10:45)
[2023-04-28] MEDS: THIAMINE HCL 100 MG TABLET (FP) PO SCH (22:54)
[2023-04-28] MEDS: DIVALPROEX SODIUM 500 MG TABLET E.C. PO SCH (22:54)
[2023-04-28] MEDS: OLANZapine 10 MG TABLET PO SCH (22:54)
[2023-04-28] MEDS: MELATONIN 5 MG TABLETS PO SCH (22:54)
[2023-04-29] MEDS ORDERED: chlordiazePOXIDE HCL 10 MG CAPSULE PO PRN
[2023-04-29] MEDS: chlordiazePOXIDE HCL 10 MG CAPSULE PO SCH ×4 (05:59→22:14)
[2023-04-29] MEDS: PRENATAL VITAMINS W/ FOLIC ACID TABLET (FP) PO SCH (10:22)
[2023-04-29] MEDS: DIVALPROEX SODIUM 500 MG TABLET E.C. PO SCH (22:14)
[2023-04-29] MEDS: THIAMINE HCL 100 MG TABLET (FP) PO SCH (22:14)
[2023-04-29] MEDS: MELATONIN 5 MG TABLETS PO SCH (22:14)
[2023-04-29] MEDS: OLANZapine 10 MG TABLET PO SCH (22:14)
[2023-04-30] MEDS: chlordiazePOXIDE HCL 10 MG CAPSULE PO SCH ×2 (05:58→18:00)
[2023-04-30] MEDS: PRENATAL VITAMINS W/ FOLIC ACID TABLET (FP) PO SCH (10:25)
[2023-04-30] MEDS: DIVALPROEX SODIUM 500 MG TABLET E.C. PO SCH (22:45)
[2023-04-30] MEDS: MELATONIN 5 MG TABLETS PO SCH (22:45)
[2023-04-30] MEDS: THIAMINE HCL 100 MG TABLET (FP) PO SCH (22:45)
[2023-04-30] MEDS: OLANZapine 10 MG TABLET PO SCH (22:46)
[2023-05-01] MEDS ORDERED: chlordiazePOXIDE HCL 10 MG CAPSULE PO ONE (05:00)
[2023-05-01 09:45] VITALS: BP 90/56; PULSE 78; RESP 18; TEMP 98.3
[2023-05-01] MEDS: PRENATAL VITAMINS W/ FOLIC ACID TABLET (FP) PO SCH (10:39)
== END 2023-05-01 10:45 | disposition other institution (70) | DRG 775 ==
LOC: SUATTDRO 14:30 → YASAS 14:30 → Y3N 18:05
PROVIDERS: ADMIT Allergy & Immunology; ATTEND Surgery
PROC: HZ2ZZZZ Detoxification Services for Substance Abuse Treatment (ICD-10-PCS; principal; 2023-04-26)
DX: F10.230 Alcohol dependence with withdrawal, uncomplicated (principal); F15.10 Other stimulant abuse, uncomplicated; F17.210 Nicotine dependence, cigarettes, uncomplicated; F25.9 Schizoaffective disorder, unspecified
CPT/HCPCS: 36415; 80053; 80307; 85027; 86780; 87635

== ENCOUNTER 2023-06-02 15:41 | Inpatient (IN) | payer OTHER ==
[2023-06-02 18:28] VITALS: BMI 25.8
[2023-06-02] MEDS ORDERED: NICOTINE POLACRILEX 2 MG GUM BUC PRN (23:10)
[2023-06-02] MEDS ORDERED: DICYCLOMINE HCL 10 MG CAPSULE PO PRN (23:10)
[2023-06-02] MEDS ORDERED: IBUPROFEN 400 MG TABLET (FP) PO PRN (23:10)
[2023-06-02] MEDS ORDERED: ACETAMINOPHEN 325 MG TABLET (FP) PO PRN (23:10)
[2023-06-02] MEDS ORDERED: BENZONATATE 200 MG CAPSULE PO PRN (23:10)
[2023-06-02] MEDS ORDERED: guaiFENesin 600 MG TABLET.ER (FP) PO PRN (23:10)
[2023-06-02] MEDS ORDERED: MAG HYDROX/AL HYDROX/SIMETH 30 ML UNIT-DOSE CUP PO PRN (23:10)
[2023-06-02] MEDS ORDERED: IBUPROFEN 600 MG TABLET (FP) PO PRN (23:10)
[2023-06-02] MEDS ORDERED: MAGNESIUM HYDROX 2400MG/30ML ORAL SUSPENSION 30 ML CUP PO PRN (23:10)
[2023-06-02] MEDS ORDERED: BISMUTH SUBSALICYLATE 524 MG/30 ML PO PRN (23:10)
[2023-06-02] MEDS ORDERED: LOPERAMIDE HCL 2 MG CAPSULE PO PRN (23:10)
[2023-06-02] MEDS ORDERED: NALOXONE HCL 0.4 MG/ML VIAL IM PRN (23:10)
[2023-06-02] MEDS ORDERED: METHOCARBAMOL 500 MG TABLET PO PRN (23:10)
[2023-06-02] MEDS ORDERED: NALOXONE HCL (KLOXXADO) 8 MG SPRAY NS PRN (23:10)
[2023-06-02] MEDS ORDERED: ONDANSETRON *ODT* 4 MG TABLET SL PRN (23:10)
[2023-06-02] MEDS ORDERED: BENZOCAINE/MENTHOL (CHLORASEPTIC ) LOZENGE MM PRN (23:10)
[2023-06-02] MEDS ORDERED: POLYETHYLENE GLYCOL (HEALTHYLAX) 3350 17 GM PACKET PO PRN (23:10)
[2023-06-03] MEDS ORDERED: BENZOCAINE 20 % GEL TUBE MM PRN (08:24)
[2023-06-03] MEDS: NICOTINE 14 MG/24 HOURS TOPICAL PATCH TD SCH (10:27)
[2023-06-03] MEDS: PRENATAL VITAMINS W/ FOLIC ACID TABLET (FP) PO SCH (10:27)
[2023-06-03 10:28] LABS: PH,URINE 5.5 (5.0-8.0); URINE APPEARANCE CLEAR; URINE BILIRUBIN NEGATIVE (NEGATIVE); URINE COLOR YELLOW; URINE GLUCOSE (UA) NEGATIVE (NEGATIVE); URINE KETONE TRACE (NEGATIVE); URINE LEUK ESTERASE NEGATIVE (NEGATIVE); URINE NITRITE NEGATIVE (NEGATIVE); URINE PROTEIN NEGATIVE (NEGATIVE)
[2023-06-03 10:34] LABS: HEMATOCRIT 39.8 % (35.4-49); HEMOGLOBIN 13.4 GM/dL (11.7-16.9); MCH 28.2 pg (25.7-33.7); MCHC 33.7 g/dl (32.0-35.9); MEAN CELL VOLUME 83.5 fl (80-96); MEAN PLT VOLUME 7.9 fl (7.5-11.1); PLATELET COUNT 271 10^3/uL (134-434); RBC 4.76 M/mm3 (4.00-5.60); RDW 13.6 % (11.9-15.9); WHITE BLOOD COUNT 3.6 K/mm3 (4.0-10.0)
[2023-06-03 11:05] LABS: CHLORIDE 105 mmol/L (98-107); SODIUM 139 mmol/L (136-145)
[2023-06-03] MEDS ORDERED: TUBERCULIN PPD 5 TU/0.1ML VIAL ID ONE ×2 (11:11→11:19)
[2023-06-03 11:14] LABS: ALBUMIN 3.4 g/dl (3.4-5.0); ANION GAP 5 mmol/L (4-13); BLOOD UREA NITROGEN 14.7 mg/dL (7-18); CO2 30 mmol/L (21-32); GLUCOSE,RANDOM 97 mg/dL (74-106); SGOT/AST 11 U/L (15-37); SGPT/ALT 18 U/L (13-61)
[2023-06-03 11:15] LABS: CALCIUM 8.5 mg/dL (8.5-10.1); TOT PROT 6.4 g/dl (6.4-8.2)
[2023-06-03 11:16] LABS: ALK PHOS 76 U/L (45-117)
[2023-06-03 11:18] LABS: BILIRUBIN,TOTAL 0.8 mg/dL (0.2-1)
[2023-06-03] MEDS: MELATONIN 5 MG TABLETS PO SCH (23:46)
[2023-06-03] MEDS: THIAMINE HCL 100 MG TABLET (FP) PO SCH (23:47)
[2023-06-04] MEDS: NICOTINE 14 MG/24 HOURS TOPICAL PATCH TD SCH (10:03)
[2023-06-04] MEDS: PRENATAL VITAMINS W/ FOLIC ACID TABLET (FP) PO SCH (10:03)
[2023-06-04 10:19] VITALS: RESP 17; TEMP 98
[2023-06-04 14:51] VITALS: BP 109/74; PULSE 80
[2023-06-04] MEDS: THIAMINE HCL 100 MG TABLET (FP) PO SCH (22:37)
[2023-06-04] MEDS: MELATONIN 5 MG TABLETS PO SCH (22:37)
== END 2023-06-05 09:48 | disposition left against medical advice (07) | DRG 770 ==
LOC: YASAS 15:41 → Y3E 06-03 01:13
PROVIDERS: ADMIT Allergy & Immunology; ATTEND Psychiatry & Neurology Pain Medicine
PROC: HZ42ZZZ Group Counseling for Substance Abuse Treatment, Cognitive-Behavioral (ICD-10-PCS; principal; 2023-06-03)
DX: F14.20 Cocaine dependence, uncomplicated (principal); F15.20 Other stimulant dependence, uncomplicated; F17.210 Nicotine dependence, cigarettes, uncomplicated; F25.9 Schizoaffective disorder, unspecified; F41.9 Anxiety disorder, unspecified; F32.A Depression, unspecified; F91.8 Other conduct disorders; Z91.199 Patient's noncompliance with other medical treatment and regimen due to unspecified reason
CPT/HCPCS: 36415; 80053; 80164; 80307; 81003; 85027; 86780; 87635

== ENCOUNTER 2023-10-03 18:15 | Inpatient (IN) | payer OTHER ==
[2023-10-03 18:54] VITALS: BMI 25.8
[2023-10-03] MEDS ORDERED: NICOTINE POLACRILEX 2 MG GUM BUC PRN (19:52)
[2023-10-03] MEDS ORDERED: guaiFENesin 600 MG TABLET.ER (FP) PO PRN (19:52)
[2023-10-03] MEDS ORDERED: hydrOXYzine PAMOATE 25 MG CAPSULE (FP) PO PRN (19:52)
[2023-10-03] MEDS ORDERED: BENZONATATE 200 MG CAPSULE PO PRN (19:52)
[2023-10-03] MEDS ORDERED: IBUPROFEN 400 MG TABLET (FP) PO PRN (19:52)
[2023-10-03] MEDS ORDERED: METHOCARBAMOL 500 MG TABLET PO PRN (19:52)
[2023-10-03] MEDS ORDERED: DICYCLOMINE HCL 10 MG CAPSULE PO PRN (19:52)
[2023-10-03] MEDS ORDERED: LOPERAMIDE HCL 2 MG CAPSULE PO PRN (19:52)
[2023-10-03] MEDS ORDERED: IBUPROFEN 600 MG TABLET (FP) PO PRN (19:52)
[2023-10-03] MEDS ORDERED: MAGNESIUM HYDROX 2400MG/30ML ORAL SUSPENSION 30 ML CUP PO PRN (19:52)
[2023-10-03] MEDS ORDERED: BISMUTH SUBSALICYLATE 524 MG/30 ML PO PRN (19:52)
[2023-10-03] MEDS ORDERED: ONDANSETRON *ODT* 4 MG TABLET SL PRN (19:52)
[2023-10-03] MEDS ORDERED: ACETAMINOPHEN 325 MG TABLET (FP) PO PRN (19:52)
[2023-10-03] MEDS ORDERED: BENZOCAINE/MENTHOL (CHLORASEPTIC ) LOZENGE MM PRN (19:52)
[2023-10-03] MEDS ORDERED: MAG HYDROX/AL HYDROX/SIMETH 30 ML UNIT-DOSE CUP PO PRN (19:52)
[2023-10-03] MEDS ORDERED: POLYETHYLENE GLYCOL (HEALTHYLAX) 3350 17 GM PACKET PO PRN (19:52)
[2023-10-03] MEDS: THIAMINE HCL 100 MG TABLET (FP) PO SCH (21:12)
[2023-10-03] MEDS: MELATONIN 5 MG TABLETS PO SCH (21:12)
[2023-10-04] MEDS: PRENATAL VITAMINS W/ FOLIC ACID TABLET (FP) PO SCH (10:38)
[2023-10-04 14:13] LABS: HEMATOCRIT 39.3 % (35.4-49); HEMOGLOBIN 13.2 GM/dL (11.7-16.9); MCHC 33.5 g/dl (32.0-35.9); MEAN CELL VOLUME 83.6 fl (80-96); MEAN PLT VOLUME 8.3 fl (7.5-11.1); PLATELET COUNT 315 10^3/uL (134-434); RBC 4.71 M/mm3 (4.00-5.60); RDW 13.5 % (11.9-15.9)
[2023-10-04 14:47] LABS: CHLORIDE 105 mmol/L (98-107); POTASSIUM 4.1 mmol/L (3.5-5.1); SODIUM 136 mmol/L (136-145)
[2023-10-04 14:49] LABS: CALCIUM 8.4 mg/dL (8.5-10.1)
[2023-10-04 14:50] LABS: ALBUMIN 3.2 g/dl (3.4-5.0); ANION GAP 2 mmol/L (4-13); CO2 30 mmol/L (21-32)
[2023-10-04 14:53] LABS: CREATININE 0.9 mg/dL (0.55-1.3); SGOT/AST 13 U/L (15-37); SGPT/ALT 23 U/L (13-61)
[2023-10-04 14:55] LABS: BILIRUBIN,TOTAL 0.6 mg/dL (0.2-1)
[2023-10-04 14:56] LABS: ALK PHOS 67 U/L (45-117)
[2023-10-04 14:57] LABS: GLUCOSE,RANDOM 97 mg/dL (74-106)
[2023-10-04] MEDS: OLANZapine 7.5 MG TABLET PO SCH (22:11)
[2023-10-04] MEDS: DIVALPROEX SODIUM 500 MG TABLET E.C. PO SCH (22:11)
[2023-10-06] MEDS ORDERED: INSULIN ASPART SLIDING SCALE (NOVOLOG) 1 VIAL SQ ONE (06:18)
[2023-10-07 12:51] VITALS: BP 98/64; PULSE 77; RESP 19; TEMP 99.1
== END 2023-10-07 14:35 | disposition home or self-care (01) | DRG 775 ==
LOC: YASAS 18:15 → Y3N 20:38
PROVIDERS: ADMIT Allergy & Immunology; ATTEND Surgery
PROC: HZ2ZZZZ Detoxification Services for Substance Abuse Treatment (ICD-10-PCS; principal; 2023-10-03)
DX: F10.20 Alcohol dependence, uncomplicated (principal); F15.10 Other stimulant abuse, uncomplicated; F17.210 Nicotine dependence, cigarettes, uncomplicated; F25.9 Schizoaffective disorder, unspecified; F41.9 Anxiety disorder, unspecified; Z56.0 Unemployment, unspecified; Z59.00 Homelessness unspecified
CPT/HCPCS: 36415; 71046-TC-FY; 80053; 80164; 80307; 85027; 86780; 87811; 93005; 93010

== ENCOUNTER 2024-09-02 14:29 | Inpatient (IN) | payer OTHER ==
[2024-09-02 15:13] VITALS: BMI 28.4
[2024-09-02] MEDS ORDERED: ACETAMINOPHEN 325 MG TABLET (FP) PO PRN ×2 (16:32→18:12)
[2024-09-02] MEDS ORDERED: BISMUTH SUBSALICYLATE 524 MG/30 ML PO PRN ×2 (16:32→18:12)
[2024-09-02] MEDS ORDERED: guaiFENesin 600 MG TABLET.ER (FP) PO PRN ×2 (16:32→18:12)
[2024-09-02] MEDS ORDERED: QUEtiapine FUMARATE 50 MG TABLET PO PRN (16:32)
[2024-09-02] MEDS ORDERED: METHOCARBAMOL 500 MG TABLET PO PRN (16:32)
[2024-09-02] MEDS ORDERED: BENZOCAINE/MENTHOL (CHLORASEPTIC ) LOZENGE MM PRN ×2 (16:32→18:12)
[2024-09-02] MEDS ORDERED: hydrOXYzine PAMOATE 25 MG CAPSULE (FP) PO PRN (16:32)
[2024-09-02] MEDS ORDERED: MAGNESIUM HYDROX 2400MG/30ML ORAL SUSPENSION 30 ML CUP PO PRN ×2 (16:32→18:12)
[2024-09-02] MEDS ORDERED: IBUPROFEN 400 MG TABLET (FP) PO PRN ×2 (16:32→18:12)
[2024-09-02] MEDS ORDERED: DICYCLOMINE HCL 10 MG CAPSULE PO PRN ×2 (16:32→18:12)
[2024-09-02] MEDS ORDERED: LOPERAMIDE HCL 2 MG CAPSULE PO PRN ×2 (16:32→18:12)
[2024-09-02] MEDS ORDERED: MAG HYDROX/AL HYDROX/SIMETH 30 ML UNIT-DOSE CUP PO PRN ×2 (16:32→18:12)
[2024-09-02] MEDS ORDERED: POLYETHYLENE GLYCOL (HEALTHYLAX) 3350 17 GM PACKET PO PRN ×2 (16:32→18:12)
[2024-09-02] MEDS ORDERED: ONDANSETRON *ODT* 4 MG TABLET SL PRN ×2 (16:32→18:12)
[2024-09-02] MEDS ORDERED: BENZONATATE 200 MG CAPSULE PO PRN ×2 (16:32→18:12)
[2024-09-02] MEDS ORDERED: IBUPROFEN 600 MG TABLET (FP) PO PRN ×2 (16:32→18:12)
[2024-09-02] MEDS ORDERED: NALOXONE (NARCAN) HCL 4 MG/0.1 ML SPRAY NS PRN ×2 (16:32→18:12)
[2024-09-02] MEDS: NALOXONE (NYS OPIOID OVERDOSE PROGRAM) 4 MG/0.1 ML SPRAY NS SCH (19:37)
[2024-09-02] MEDS ORDERED: THIAMINE 100 MG TABLET PO SCH (22:00)
[2024-09-02] MEDS: METHOCARBAMOL 500 MG TABLET PO PRN (22:33)
[2024-09-02] MEDS: PRENATAL VITAMINS W/ FOLIC ACID TABLET (FP) PO SCH (22:33)
[2024-09-02] MEDS: DIVALPROEX SODIUM 500 MG TABLET E.C. PO SCH (22:33)
[2024-09-02] MEDS: QUEtiapine FUMARATE 25 MG TABLET PO ONE (22:33)
[2024-09-02] MEDS: THIAMINE 100 MG TABLET PO SCH (22:33)
[2024-09-02] MEDS: MELATONIN 5 MG TABLETS PO SCH (22:34)
[2024-09-03] MEDS ORDERED: chlordiazePOXIDE HCL 25 MG CAPSULE PO PRN (08:00)
[2024-09-03] MEDS ORDERED: PRENATAL VITAMINS W/ FOLIC ACID TABLET (FP) PO SCH (10:00)
[2024-09-03] MEDS: chlordiazePOXIDE HCL 25 MG CAPSULE PO SCH (10:08)
[2024-09-03] MEDS: hydrOXYzine PAMOATE 25 MG CAPSULE (FP) PO PRN (10:08)
[2024-09-03 12:10] LABS: HEMATOCRIT 41.5 % (35.4-49); HEMOGLOBIN 13.8 GM/dL (11.7-16.9); MCH 27.6 pg (25.7-33.7); MCHC 33.3 g/dl (32.0-35.9); MEAN CELL VOLUME 82.8 fl (80-96); MEAN PLT VOLUME 8.9 fl (7.5-11.1); PLATELET COUNT 234 10^3/uL (134-434); RDW 13.8 % (11.9-15.9); WHITE BLOOD COUNT 4.3 K/mm3 (4.0-10.0)
[2024-09-03 12:12] LABS: CHLORIDE 106 mmol/L (98-107); POTASSIUM 4.5 mmol/L (3.5-5.1); SODIUM 140 mmol/L (136-145)
[2024-09-03 12:15] LABS: ALBUMIN 3.5 g/dl (3.4-5.0); ANION GAP 5 mmol/L (4-13); BLOOD UREA NITROGEN 16.9 mg/dL (7-18); CALCIUM 8.3 mg/dL (8.5-10.1); CO2 29 mmol/L (21-32); GLUCOSE,RANDOM 100 mg/dL (74-106)
[2024-09-03 12:18] LABS: CREATININE 0.9 mg/dL (0.55-1.3); SGOT/AST 10 U/L (15-37); SGPT/ALT 13 U/L (13-61)
[2024-09-03 12:20] LABS: BILIRUBIN,TOTAL 0.4 mg/dL (0.2-1); TOT PROT 6.2 g/dl (6.4-8.2)
[2024-09-03 12:21] LABS: ALK PHOS 80 U/L (45-117)
[2024-09-03] MEDS: DIVALPROEX SODIUM 500 MG TABLET E.C. PO SCH (12:41)
[2024-09-03] MEDS: NALTREXONE HCL 50 MG TABLET PO ONE (13:43)
[2024-09-03] MEDS: OLANZapine 7.5 MG TABLET PO SCH (23:02)
[2024-09-04] MEDS: NALTREXONE HCL 50 MG TABLET PO SCH (10:29)
[2024-09-05] MEDS: chlordiazePOXIDE HCL 25 MG CAPSULE PO SCH (05:56)
[2024-09-06] MEDS ORDERED: chlordiazePOXIDE HCL 10 MG CAPSULE PO PRN
[2024-09-06] MEDS: chlordiazePOXIDE HCL 10 MG CAPSULE PO SCH (05:32)
[2024-09-06 16:53] VITALS: RESP 18
[2024-09-07] MEDS: chlordiazePOXIDE HCL 10 MG CAPSULE PO SCH (05:40)
[2024-09-07] MEDS: OLANZapine 7.5 MG TABLET PO SCH (21:43)
[2024-09-07] MEDS: DIVALPROEX SODIUM 250 MG TABLET E.C. PO SCH (21:43)
[2024-09-08] MEDS: chlordiazePOXIDE HCL 10 MG CAPSULE PO ONE (05:55)
[2024-09-08 08:48] VITALS: BP 111/64; PULSE 91; TEMP 97.8
== END 2024-09-08 10:15 | disposition other institution (70) | DRG 774 ==
LOC: YASAS 14:29 → Y6N 17:10
PROVIDERS: ADMIT Allergy & Immunology; ATTEND Allergy & Immunology
PROC: HZ2ZZZZ Detoxification Services for Substance Abuse Treatment (ICD-10-PCS; principal; 2024-09-02)
DX: F10.230 Alcohol dependence with withdrawal, uncomplicated (principal); F15.20 Other stimulant dependence, uncomplicated; F14.10 Cocaine abuse, uncomplicated; F17.210 Nicotine dependence, cigarettes, uncomplicated; F25.9 Schizoaffective disorder, unspecified; F31.9 Bipolar disorder, unspecified; E83.51 Hypocalcemia
CPT/HCPCS: 36415; 80053; 80164; 80305; 80307; 85027; 86780; 93005; 93010